=== PATIENT | female | born 2000 | race Caucasian/White ===

== ENCOUNTER → 2021-10-12 | Outpatient (CLI) | payer BC ==
--- NOTE | 2021-10-12 08:49 | KCIC ---
EXAM: DUAL ENERGY X-RAY ABSORPTIOMETRY (DEXA). HISTORY: Postmenopausal screening. FINDINGS: The lowest measured T-score is -2.3 in the lumbar spine, based on a bone mineral density of 0.798 g/cm^2. Refer to the worksheets for full detail. No comparison examinations are available. IMPRESSION: 1. Low bone mass. Bone mineral density yields a T-score between -1.0 and -2.5. Fracture risk is incre ased. 2. FRAX report: Not calculated. METHODOLOGY: Dual energy x-ray absorptiometry was performed to measure bone mineral density. The foll owing analysis is based on the 2019 Official Positions of the International Society for Clinical Dens itometry: Measurements of the hips and the average of L1-L4 are preferred. When the spine and/or hip cannot be feasibly measured or interpreted, or in the setting of hyperparathyroidism, distal radial bone minera l density may be measured. The lumbar spine T-score is based on the average bone mineral density of L1-L4. In the setting of art ifact or anatomic abnormality, some lumbar levels may be excluded, and the remaining levels used for calculation. A single lumbar level is not used for diagnosis, and if only a single level is available for assessment, another anatomic site will be used to assign a diagnosis. The hip T-score is based on the bone mineral density measurement of the femoral neck or total proxima l femur of either side, whichever is lowest. Bilateral mean values are not used for diagnosis. The forearm T-score is derived from 33% of the distal radius of the nondominant forearm. Electronically signed by: Paige Whittaker MD (10/12/2021 8:47 AM) [id number]
--- NOTE | 2021-10-12 08:52 | KCIC ---
Bilateral breast ultrasound: Reason for examination: Bilateral breast pain for 3 years. Ultrasound examination was performed bilaterally of the breasts and axilla. In the right breast at the 10:00 position 4 cm from the nipple, there is a 6.6 mm hypoechoic circumsc ribed lesion in parallel orientation no abnormal vascularity. The appearance would be consistent with a small fibroadenoma. At the 10:00 position 3 cm from the nipple, there is a 3.7 mm hypoechoic circu mscribed lesion in parallel orientation with a fibrocystic appearance and no abnormal vascularity see n. No suspicious-appearing nodules are seen. No abnormal appearing lymph nodes are seen in the right axilla. The left breast shows no discrete cystic or solid nodules within the dense parenchyma. No abnormal ap pearing lymph nodes are seen in the left axilla. IMPRESSION: 6.6 mm circumscribed nodule at the 10:00 position 4 cm from the nipple in the right breast consistent with small fibroadenoma. 3.7 mm circumscribed nodule at the 10:00 position 3 cm from the nipple in the right breast consistent with a small fibrocystic nodule. No focal abnormality seen in the left breast. Recommend 6 month follow-up of the right breast with ultrasound. BI-RADS Category 3: Probably Benign. "Our facility is accredited by the [employer] Mammography Program." This patient's information has been entered into a reminder system for the patient to be notified wit h the results of her examination and a target date for the next mammogram. Electronically signed by: Karissa Wiggins MD (10/12/2021 8:50 AM) [id number]
== END ==
LOC: KCIC US 07:48
PROVIDERS: ATTEND Nurse Practitioner Women's Health
DX: N63.11 Unspecified lump in the right breast, upper outer quadrant (principal); M85.88 Other specified disorders of bone density and structure, other site; Z79.3 Long term (current) use of hormonal contraceptives
CPT/HCPCS: 76641; 77080